=== PATIENT | female | born 1990 | race Caucasian/White ===

== ENCOUNTER 2020-03-26 11:13 | Emergency (ER) | payer OTHER ==
[~2020-03-26] VITALS: Ht 162.6 cm; Wt 63.5 kg
[~2020-03-26 11:13] MED LIST: Crutch1 EACH EXT; ESCI10 PO; IBUP800 PO; ONDA4ODT MM; Percocet 5-3251 EACH PO
== END 2020-03-26 12:00 | disposition home or self-care (01) ==
LOC: ER 11:13
DX: S82.851D Displaced trimalleolar fracture of right lower leg, subsequent encounter for closed fracture with routine healing (principal); Z79.899 Other long term (current) drug therapy; X58.XXXD Exposure to other specified factors, subsequent encounter
CPT/HCPCS: 99282

== ENCOUNTER 2020-03-31 09:39 | Day surgery (SDC) | payer OTHER ==
[~2020-03-31] VITALS: Ht 162.6 cm; Wt 62.6 kg
--- NOTE | 2020-03-31 13:20 | NUR ---
03/31/20 1320 Marissa Barnes RECEIVED REPORT FROM SMITA BROWN. PATIENT IN CHAIR WITH SO AT CHAIRSIDE. PATIENT REPORTS PAIN 03/07. SHE IS UP AND CONVERSING AND EATING CRACKERS AT THIS TIME. PATIENT DOES APPEAR TO BE UNCOMFORTABLE. WILL CONTINUE TO MEDICATE PER MD ORDERS
== END 2020-03-31 13:01 | disposition home or self-care (01) ==
LOC: ORSCSDS 09:39
PROVIDERS: Orthopaedic Surgery
PROC: 0QSJ04Z Reposition Right Fibula with Internal Fixation Device, Open Approach (ICD-10-PCS; principal; 2020-03-31 11:30)
PROC: 0QSG04Z Reposition Right Tibia with Internal Fixation Device, Open Approach (ICD-10-PCS; principal; 2020-03-31 11:30)
DX: S82.841A Displaced bimalleolar fracture of right lower leg, initial encounter for closed fracture (principal); S93.491A Sprain of other ligament of right ankle, initial encounter
CPT/HCPCS: A9270-GY; C1713; C1776; J0690; J1100; J2250; J2405; J2704; J2765; J2795; J3010; J7120